=== PATIENT | male | born 1960 | race Caucasian/White ===

== ENCOUNTER 2024-04-21 15:57 | Emergency (ER) | payer BC ==
[2024-04-21 16:24] VITALS: TEMP 97.8
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
--- NOTE | 2024-04-21 19:26 | XR ---
EXAMINATION TYPE: XR forearm LT DATE OF EXAM: 04/21/2024 7:16 PM CLINICAL INDICATION:Male, 63 years old with history of fall, pain; [facility] COMPARISON: None TECHNIQUE: XR forearm LT; forearm was examined in AP and lateral projections. FINDINGS: No acute osseous pathology, soft tissue swelling or joint dislocations are seen. Atheroscl erosis of the arterial vasculature. Degeneration changes of the joints of the wrist and elbow with os teophyte formation and joint space narrowing. IMPRESSION: No evidence of acute fracture.
--- NOTE | 2024-04-21 19:27 | XR ---
EXAMINATION TYPE: XR humerus LT DATE OF EXAM: 04/21/2024 7:16 PM CLINICAL INDICATION:Male, 63 years old with history of fall; [facility] COMPARISON: None TECHNIQUE: XR humerus LT examined in frontal and lateral projections. FINDINGS: No evidence of acute osseous pathology, joint dislocation, or soft tissue swelling. The rem aining portions of the visualized chest are unremarkable. Degeneration changes of the acromioclavicul ar and glenohumeral joint. Mild joint space narrowing osteophyte formation of the joints of the elbow . IMPRESSION: No acute osseous pathology.
--- NOTE | 2024-04-21 19:28 | XR ---
EXAMINATION TYPE: XR ribs LT w pa chest xray DATE OF EXAM: 04/21/2024 7:16 PM CLINICAL INDICATION:Male, 63 years old with history of fall, pain; [facility] COMPARISON: None TECHNIQUE: XR ribs LT w pa chest xray; Frontal and oblique views of the ribs with frontal chest radio graph. FINDINGS: The ribs have a normal appearance. No evidence of fracture. Overall, the lungs are clear. The cardiac silhouette is normal in size. The remaining osseous structures are intact. IMPRESSION: No acute osseous pathology.
--- NOTE | 2024-04-21 19:29 | XR ---
EXAMINATION TYPE: XR Hip LT and AP Pelvis DATE OF EXAM: 04/21/2024 7:17 PM CLINICAL INDICATION:Male, 63 years old with history of fall, pain; [facility] COMPARISON: None. TECHNIQUE: XR Hip LT and AP Pelvis; hip was examined in the frontal and lateral projections and a AP pelvis. FINDINGS: No evidence for acute process, joint dislocation or significant soft tissue swelling. Osteo phyte formation of the superior acetabulum of the hip. There is mild joint space narrowing. IMPRESSION: 1. No evidence for acute process. 2. Mild hip osteoarthrosis.
[2024-04-21] MEDS: KETOROLAC 15 MG/ML 1 ML VIAL IM STA (20:16)
[2024-04-21] MEDS: DIPH,PERTUS(ACELL)TETVAC-LF 0.5 ML VIAL IM ONE (20:25)
[2024-04-21 20:53] VITALS: BP 123/72; PULSE 80; RESP 16
== END 2024-04-21 20:52 | disposition home or self-care (01) ==
LOC: EC 15:57
DX: S50.12XA Contusion of left forearm, initial encounter (principal); R07.81 Pleurodynia; Z88.8 Allergy status to other drugs, medicaments and biological substances; Z23 Encounter for immunization; W18.30XA Fall on same level, unspecified, initial encounter
CPT/HCPCS: 71101; 73502; 73060; 73090; 90715; 99283; 90471; 96372; J1885